=== PATIENT | female | born 1985 | race Caucasian/White ===

== ENCOUNTER → 2021-02-04 | Outpatient (CLI) | payer OTHER ==
[~2021-02-04] MED LIST: IRON PO
[2021-02-04 09:29] LABS: BASOPHILS % (AUTO) 2 % (0-1); EOSINOPHILS % (AUTO) 2 % (1-7); LYMPHOCYTES % (AUTO) 32 % (22-44); MEAN CORPUSCULAR HEMOGLOBIN 20.2 pg (27.0-34.8); MEAN CORPUSCULAR HGB CONC 30.5 g/dL (32.4-35.8); MEAN PLATELET VOLUME 8.3 fL (7.4-10.4); MONOCYTES % (AUTO) 7 % (2-9); NEUTROPHILS % (AUTO) 58 % (42-75); PLATELET COUNT 324 x10^3/uL (130-400); RED BLOOD COUNT 4.29 x10^6/uL (3.82-5.3); RED CELL DISTRIBUTION WIDTH 17.6 % (9.6-15.2)
[2021-02-04 10:31] LABS: MICROCYTOSIS 2+
[2021-02-04 10:32] LABS: <PLATELET ESTIMATE> ADEQUATE; <PLT MORPHOLOGY> NORMAL PLT MORPH; ANISOCYTOSIS 1+; HYPOCHROMIA 2+; OVALOCYTES 1+
== END | disposition home or self-care (01) ==
LOC: STAR 08:10
PROVIDERS: ATTEND Obstetrics & Gynecology
DX: Z01.812 Encounter for preprocedural laboratory examination (principal); Z20.822 Contact with and (suspected) exposure to COVID-19
CPT/HCPCS: 36415; 85025; U0003; U0005

== ENCOUNTER 2021-02-08 12:39 | Day surgery (SDC) | payer OTHER ==
[~2021-02-08] VITALS: Ht 165.1 cm; Wt 71.2 kg
[2021-02-08 13:44] VITALS: BP 128/82
[2021-02-08] MEDS ORDERED: LACTATED RINGERS 1,000 ML IV SCH (14:00)
[2021-02-08] MEDS ORDERED: CHLORHEXIDINE 15 ML UDC PO ONE (14:00)
[2021-02-08] MEDS ORDERED: FENTANYL PF 250 MCG/5ML ONE (16:21)
[2021-02-08] MEDS ORDERED: MIDAZOLAM 1 MG/ML, 2ML ONE (16:21)
[2021-02-08] MEDS ORDERED: BUPIVACAINE 0.25% ONE (17:26)
[2021-02-08] MEDS ORDERED: FLUORESCEIN SODIUM 500 MG/5 ML ONE (17:26)
[2021-02-08] MEDS ORDERED: DIPHENHYDRAMINE 50 MG/ML, 1ML IVPush PRN (17:30)
[2021-02-08] MEDS ORDERED: hydrALAzine 20 MG/ML, 1ML IV PRN (17:30)
[2021-02-08] MEDS ORDERED: PROMETHAZINE 25 MG/ML, 1ML IVPush PRN ×2 (17:30→20:30)
[2021-02-08] MEDS ORDERED: MEPERIDINE/PF 25MG/0.5ML IVPush PRN (17:30)
[2021-02-08] MEDS ORDERED: OXYcodone 5 MG/5 ML ORAL.SOL UDC PO PRN ×2 (17:30→20:30)
[2021-02-08] MEDS ORDERED: HYDROmorphone 1 MG/ML, 1ML INJ IVPush PRN ×2 (17:30→20:30)
[2021-02-08] MEDS ORDERED: ACETAMINOPHEN 325 MG TABLET PO PRN ×2 (17:30→20:30)
[2021-02-08] MEDS ORDERED: FENTANYL PF 100 MCG/2ML IV PRN ×2 (17:30→20:30)
[2021-02-08] MEDS ORDERED: LABETALOL 5MG/ML, 20ML IV PRN (17:30)
[2021-02-08] MEDS ORDERED: HALOPERIDOL 5 MG/ML IV PRN (17:30)
[2021-02-08] MEDS ORDERED: ONDANSETRON 2MG/ML, 2ML ONE ×2 (17:52→20:40)
[2021-02-08] MEDS ORDERED: NEOSTIGMINE 1 MG/ML, 10ML ONE (17:52)
[2021-02-08] MEDS ORDERED: DEXAMETHASONE 4 MG/ML, 1ML ONE (17:52)
[2021-02-08] MEDS ORDERED: CEFAZOLIN 1,000 MG ONE (17:52)
[2021-02-08] MEDS ORDERED: KETOROLAC 30 MG/1 ML ONE (17:52)
[2021-02-08] MEDS ORDERED: GLYCOPYRROLATE 0.2MG/1ML, 5ML ONE (17:52)
[2021-02-08] MEDS ORDERED: ROCURONIUM 10 MG/ML,10ML ONE (17:52)
[2021-02-08] MEDS ORDERED: PROPOFOL 10 MG/ML, 20ML ONE (17:52)
[2021-02-08] MEDS ORDERED: LORazepam 2 MG/ML, 1ML IVPush PRN (20:30)
[2021-02-08] MEDS ORDERED: ONDANSETRON 2MG/ML, 2ML IVPush PRN (20:30)
[2021-02-08] MEDS ORDERED: EPHEDRINE 50 MG/ML, 1ML IVPush PRN (20:30)
[2021-02-08] MEDS ORDERED: DOCU-131 PO (20:32)
[2021-02-08] MEDS ORDERED: OXYC1TAB14 PO (20:32)
[2021-02-08] MEDS ORDERED: IBUP-1223 PO (20:32)
[2021-02-08] MEDS ORDERED: METHOCARBAMOL 1,000 MG in DEXTROSE 5% 100 ML IV PRN (21:00)
[2021-02-08] MEDS ORDERED: HALOPERIDOL 5 MG/ML ONE (21:06)
[2021-02-08 22:30] VITALS: BP 115/71
[2021-02-08] MEDS ORDERED: OXYcodone/APAP 5/325MG TABLET ONE (23:37)
[2021-02-08] MEDS ORDERED: HYDROmorphone 1 MG/ML, 1ML INJ IV PRN (23:45)
[2021-02-08] MEDS ORDERED: KETOROLAC 30 MG/1 ML IV PRN (23:45)
[2021-02-08] MEDS ORDERED: ONDANSETRON 2MG/ML, 2ML IV PRN (23:45)
[2021-02-08] MEDS ORDERED: OXYcodone/APAP 5/325MG TABLET PO PRN (23:45)
== END 2021-02-08 23:56 | disposition home or self-care (01) ==
LOC: OUT 12:39 → 4NE 22:00 → OUT 23:56
PROVIDERS: ATTEND Obstetrics & Gynecology
DX: N93.9 Abnormal uterine and vaginal bleeding, unspecified (principal); N83.292 Other ovarian cyst, left side; N70.11 Chronic salpingitis; N73.6 Female pelvic peritoneal adhesions (postinfective); D50.0 Iron deficiency anemia secondary to blood loss (chronic); R53.81 Other malaise; G43.909 Migraine, unspecified, not intractable, without status migrainosus; Z87.442 Personal history of urinary calculi; Z88.2 Allergy status to sulfonamides; Z98.51 Tubal ligation status; Z98.890 Other specified postprocedural states; Z83.79 Family history of other diseases of the digestive system
CPT/HCPCS: 58552; 81025; 88307; J0690; J1100; J1630; J1885; J2250; J2405; J2704; J2710; J2800; J3010; J7120; S2900; G0378